=== PATIENT | female | born 1970 | race Caucasian/White ===

== ENCOUNTER → 2016-09-07 | Outpatient (CLI) | payer BC ==
[~2016-09-07] MED LIST: ACET-1311 PO; CLR10 PO; IBUP-1427 PO; LEVO88TA3 PO; PTU50 PO; TRAZADONE PO
--- NOTE | 2016-09-07 15:22 | DIAGNOSTIC IMAGING REPORT ---
LEFT SHOULDER 3 VIEWS HISTORY: M25.512 Left shoulder pain COMPARISON: None. FINDINGS: There is no fracture or dislocation. Soft tissues are unremarkable. The left clavicle is intact. Small bone island within the humeral head. IMPRESSION: No fractures. Electronically signed by: Arben Sheriff M.D. 09/07/2016 3:21 PM Dictated Date/Time: 09/07/2016 3:20 PM
== END | disposition home or self-care (01) ==
LOC: C.RAD1850 15:05
PROVIDERS: ATTEND Nurse Practitioner Family
DX: M25.512 Pain in left shoulder (principal)

== ENCOUNTER → 2016-12-24 | Outpatient (CLI) | payer BC ==
--- NOTE | 2016-12-24 11:37 | DIAGNOSTIC IMAGING REPORT ---
CERVICAL SPINE MRI HISTORY: Pain. Neuropathy. DISC HERNIATION TECHNIQUE: Multiplanar multisequence MRI of the cervical spine was performed without the use of contrast. COMPARISON STUDY: 10/03/2015 FINDINGS: Mildly progressive degenerative disc change from C5 through C7. Vertebral body signal character remains unremarkable. Subtle myelomalacia of the cervical cord based on the sagittal images at C5 level. C2-C3: No significant central canal or neural foraminal narrowing. C3-C4: No significant central canal or neural foraminal narrowing. C4-C5: No significant central canal or neural foraminal narrowing. C5-C6: Right central bulging disc slightly increased in prominence in the prior study. Minimal narrowing right neuroforamina. C6-C7: Progressive left central disc herniation with moderate deformity left anterior aspect cervical cord. Disc material extending posterior to the C6 vertebral body to a minimal degree. C7-T1: No significant central canal or neural foraminal narrowing. IMPRESSION: 1. Mildly progressive left central disc herniation C6-C7 with mildly progressive deformity left anterior cervical cord. 2. Mild right central bulging disc C5-C6 slightly increased in the prior study. 3. 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 4. Slightly progressive degenerative disc change C5-C7. Electronically signed by: Christopher Orourke M.D. 12/24/2016 11:35 AM Dictated Date/Time: 12/24/2016 11:24 AM
== END | disposition home or self-care (01) ==
LOC: C.OPENMRI 09:43
PROVIDERS: ATTEND Orthopaedic Surgery Orthopaedic Surgery of the Spine
DX: G62.9 Polyneuropathy, unspecified (principal)

== ENCOUNTER → 2017-04-01 | Outpatient (CLI) | payer BC ==
[~2017-04-01] MED LIST changes: -PTU50 PO; -TRAZADONE PO
[2017-04-01 10:13] LABS: THYROID STIMULATING HORMONE 1.17 uIu/ml (0.300-4.500)
== END | disposition home or self-care (01) ==
LOC: C.LAB1850 08:04
PROVIDERS: ATTEND Physician Assistant
DX: E03.9 Hypothyroidism, unspecified (principal)

== ENCOUNTER → 2017-05-10 | Outpatient (CLI) | payer BC ==
--- NOTE | 2017-05-10 15:22 | MAMMOGRAPHY REPORT ---
BILATERAL DIGITAL SCREENING MAMMOGRAM TOMOSYNTHESIS WITH CAD: 05/10/2017 CLINICAL HISTORY: Routine screening. TECHNIQUE: Breast tomosynthesis in addition to standard 2D mammography was performed. Current study was also evaluated with a Computer Aided Detection (CAD) system. COMPARISON: Comparison is made to exams dated: 05/03/2016 mammogram, 05/13/2015 mammogram, 5 mammogram, 03/31/2014 mammogram, 03/30/2013 mammogram, and 03/27/2012 mammogram - [facility]. BREAST COMPOSITION: The tissue of both breasts is heterogeneously dense, which may obscure small mas ses. FINDINGS: No suspicious masses, calcifications, or areas of architectural distortion are noted in ei ther breast. There has been no significant interval change compared to prior exams. IMPRESSION: ACR BI-RADS CATEGORY 1: NEGATIVE There is no mammographic evidence of malignancy. A 1 year screening mammogram is recommended. The pa tient will receive written notification of the results. Approximately 10% of breast cancers are not detected with mammography. A negative mammographic report should not delay biopsy if a clinically suggestive mass is present. Jess Bowles M.D. ah/:05/10/2017 07:44:44 Certified Procedural Coder: Mary Beth MERCADO(Azucena)(M), [facility] letter sent: Normal 1/2 BI-RADS Code: ACR BI-RADS Category 1: Negative
== END | disposition home or self-care (01) ==
LOC: C.MAMM 07:14
PROVIDERS: ATTEND Obstetrics & Gynecology
DX: Z12.31 Encounter for screening mammogram for malignant neoplasm of breast (principal)

== ENCOUNTER → 2017-06-24 | Outpatient (CLI) | payer BC ==
--- NOTE | 2017-06-24 14:09 | DIAGNOSTIC IMAGING REPORT ---
THYROID ULTRASONOGRAPHY CLINICAL HISTORY: E01.0 [id number] Throat [id number] COMPARISON STUDY: No previous studies for comparison. FINDINGS: The right lobe measures 61 x 15 x 18 mm. The left lobe measures 56 x 15 x 18 mm. Both lobes are heterogeneous in echotexture. No focal masses are visualized. IMPRESSION: 1. The thyroid gland is at the upper limits of normal in size 2. Diffusely heterogeneous thyroid echotexture without evidence of focal mass Electronically signed by: Shaw Madden M.D. 06/24/2017 2:08 PM Dictated Date/Time: 06/24/2017 2:06 PM
== END | disposition home or self-care (01) ==
LOC: C.ULTR 13:41
PROVIDERS: ATTEND Nurse Practitioner Family
DX: E01.0 Iodine-deficiency related diffuse (endemic) goiter (principal); R68.89 Other general symptoms and signs